=== PATIENT | male | born 1950 | race Caucasian/White ===

== ENCOUNTER → 2025-03-27 14:44 | Outpatient (REF) | payer BC, SELFPAY | LOC: HWRCS 14:44 | PROVIDERS: ATTENDING PHYSICIAN Internal Medicine Cardiovascular Disease | DX: I48.92 Unspecified atrial flutter (principal); I35.1 Nonrheumatic aortic (valve) insufficiency; I34.0 Nonrheumatic mitral (valve) insufficiency; R06.02 Shortness of breath | CPT/HCPCS: 93306 ==